=== PATIENT | male | born 1980 | race Caucasian/White ===

== ENCOUNTER 2017-11-06 16:56 | Emergency (ER) | payer OTHER ==
[2017-11-06 17:19] VITALS: BP 148/87; PULSE 67; RESP 16; TEMP 98.1; O2SAT 95
--- NOTE | 2017-11-06 17:50 | EDPHY ---
H & P Time Seen by Provider: 11/06/17 17:07 HPI/ROS: HPI Upset stomach, loose stool. 37-year-old male by private vehicle. This patient reports that on Wednesday evening he ate oysters. Wednesday morning. He reports that he had some loose greenish stools. He reports that he was not nauseous. He reports that he had hot sauce with pole chicken for lunch. He reports that after this and into the evening on Wednesday he had intermittent epigastric and mid abdominal discomfort and bloating as well as continued loose greenish brownish stools. He reports that since this time he induced vomiting Wednesday evening because he was feeling bloated after he ate a greasy hamburger. He reports that he induced vomiting by drinking a lot of water. He reports he felt better after this but still has had intermittent mid abdominal cramping and epigastric discomfort with a sensation of bloating and loss of appetite. He denies bloody or melenic stool. He has had no further vomiting. He has been tolerating oral fluids. No foreign travel. No camping. No ill contacts. ROS: Constitutional: No fever, no chills. No weakness. Eyes: No discharge. No changes in vision. ENT: No sore throat. No nasal congestion or rhinorrhea. Respiratory: No cough. No shortness of breath. Cardiac: No chest pain, no palpitations. Gastrointestinal: As above. Genitourinary: No hematuria. No dysuria or increased frequency with urination. Musculoskeletal: No back pain. No neck pain. No myalgias or arthralgias. Skin: No rashes. Neurological: No headache. No focal weakness or altered sensation. Past medical history: Hypothyroid. Right shoulder surgery. Social history: Nonsmoker. Physically active. No alcohol. Here by himself. Physical Exam: General Appearance: Alert, no distress. This patient is responding to questions appropriately and in full sentences. This patient appears well- hydrated and well-nourished. Eyes: Pupils equal and round no pallor or injection. No lid edema, erythema or injection. Gastrointestinal: Abdomen is soft and nontender on deep palpation throughout, no masses, bowel sounds normal. No focal tenderness at McBurney's point. No Brantley sign. Neurological: Motor sensory function is grossly intact. Cranial nerves are normal. Gait is normal. Skin: Warm and dry, no rashes. Extremities are symmetrical. All joints range without pain or impingement. Psychiatric: No agitation. No depression. Database: EKG: Imaging: Procedures: Emergency department course: Vital signs reviewed and are normal. He has a benign abdominal exam. He has been tolerating oral fluids. His symptoms are consistent with a food-borne illness. I discussed bland diet and oral hydration. He is to follow up with his primary care physician early this week for re-evaluation. Return to emergency department precautions were thoroughly reviewed with him. He feels comfortable going home and all of his questions were answered. He declines a prescription for Zofran or other antiemetics at this time. I did discuss using [id number] Pepto-Bismol. He was discharged in good condition. Differential Diagnosis: The differential diagnosis on this patient includes but is not limited to food borne illness, gastroenteritis. Bowel obstruction, appendicitis, volvulus, cholecystitis, pancreatitis, unlikely. This represents a partial list of diagnoses considered. These considerations are based on history, physical exam , past history, reassessment and diagnostic testing. Smoking Status: Current some day smoker Constitutional: Initial Vital Signs Temperature (C) 36.7 C 11/06/17 17:05 Heart Rate 67 11/06/17 17:05 Respiratory Rate 16 11/06/17 17:05 Blood Pressure 148/87 H 11/06/17 17:05 O2 Sat (%) 95 11/06/17 17:05 O2 Delivery Mode Room Air Allergies/Adverse Reactions: No Known Allergies Allergy (Verified 11/06/17 17:10) Home Medications: Medication Instructions Recorded Levothyroxine 11/06/17 Departure - Departure Disposition: Home, Routine, Self-Care Clinical Impression: Gastroenteritis, Food poisoning Condition: Good Instructions: Gastroenteritis (ED), Food Poisoning (ED) Additional Instructions: Read and follow provided instructions. Follow-up with your primary care physician on Wednesday or Wednesday of this week for re-evaluation. Keep well hydrated. A good fluid to drink is Gatorade mixed with water in a 1- 1 dilution over ice. Eat easily digestible foods such as dry toast and scrambled egg whites with olive oil. Advance your diet as tolerated. Use Pepto-Bismol as directed. Return to the emergency department for worsening symptoms, vomiting and inability to keep fluids down, worsening abdominal pain, fever, bloody stool or other serious concerns. Referrals: NONE *PRIMARY CARE P,. [Primary Care Provider] - As per Instructions
== END 2017-11-06 17:53 | disposition home or self-care (01) ==
LOC: CED 16:56
DX: T62.91XA Toxic effect of unspecified noxious substance eaten as food, accidental (unintentional), initial encounter (principal); K52.9 Noninfective gastroenteritis and colitis, unspecified; F17.200 Nicotine dependence, unspecified, uncomplicated

== ENCOUNTER 2018-05-31 19:15 | Emergency (ER) | payer OTHER ==
[2018-05-31 19:30] VITALS: BP 130/89
== END 2018-05-31 19:36 | disposition left against medical advice (07) ==
DX: Z53.21 Procedure and treatment not carried out due to patient leaving prior to being seen by health care provider (principal)

== ENCOUNTER 2018-05-31 20:06 | Emergency (ER) | payer OTHER ==
[2018-05-31 20:11] VITALS: BP 118/72
--- NOTE | 2018-05-31 20:22 | EDPHY ---
H & P Stated Complaint: Pt feels like someone put something in his tea. jittery Time Seen by Provider: 05/31/18 20:22 - Personal History Current Tetanus/Diphtheria Vaccine: Yes Current Tetanus Diphtheria and Acellular Pertussis (TDAP): Yes - Medical/Surgical History Hx Asthma: No Hx Chronic Respiratory Disease: No Hx Diabetes: No Hx Cardiac Disease: No Hx Renal Disease: No Hx Cirrhosis: No Hx Alcoholism: No Hx HIV/AIDS: No Hx Splenectomy or Spleen Trauma: No Other PMH: Med hx-hypothyroid. Surg-rt shoulder for tear - Social History Smoking Status: Former smoker Constitutional: Initial Vital Signs Temperature (C) 37.4 C 05/31/18 20:08 Heart Rate 78 05/31/18 20:08 Respiratory Rate 16 05/31/18 20:08 Blood Pressure 118/72 05/31/18 20:08 O2 Sat (%) 95 05/31/18 20:08 O2 Delivery Mode Room Air Allergies/Adverse Reactions: No Known Allergies Allergy (Verified 05/31/18 20:11) Home Medications: Medication Instructions Recorded Levothyroxine 11/06/17 Medical Decision Making ED Course/Re-evaluation: CHIEF COMPLAINT: Concern for substance ingestion HISTORY OF PRESENT ILLNESS: This patient is a 37 year old male who presents with concern that he may have ingested an unknown substance against his will. Today at work, a coworker offered him a cup of green tea. About 20-25 minutes after drinking this, he began to feel hyper-focused. He also had his regular full cup of bulletproof coffee this morning, but generally has a high caffeine tolerance and is not affected by extra caffeine intake. After lunch, the patient felt unusually jittery, wired, and anxious. He is concerned as this is abnormal for him, and he is worried he may have been given a substance such as cocaine or amphetamines in the tea. He is particularly concerned as he suspects the possibility of ulterior motives in his coworker for providing him with illicit substances against his knowledge. He denies any caffeine or energy supplements including B complex of B12. He has been on a keto diet and has been taking a liver support enzyme and magnesium. Currently, he feels much more calm and normal. He denies chest pain, shortness of breath, palpitations, diaphoresis, nausea, vomiting, diarrhea, or other associated symptoms. REVIEW OF SYSTEMS: A comprehensive 10 system review of systems is otherwise negative aside from elements mentioned in the history of present illness and medical decision making. PHYSICAL EXAM: HR, BP, O2 Sat, RR. Temp noted General Appearance: Alert, well hydrated, appropriate, and non-toxic appearing. Head: Atraumatic without scalp tenderness or obvious injury Eyes: Pupils equal, round, reactive to light and accommodation, EOMI, no trauma , no injection. Ears: Clear bilaterally, no perforation, normal landmarks Nose: Atraumatic, no rhinorrhea, clear. Throat: There is no erythema or exudates, no lesions, normal tonsils, mucus membranes moist. Neck: Supple, 2+ carotid upstroke, nontender, no lymphadenopathy. Respiratory: No retractions, no distress, no wheezes, and no accessory muscle use. Lungs are clear to auscultation bilaterally. Cardiovascular: Regular rate and rhythm, no murmurs, rubs, or gallops. Bilateral carotid, radial, dorsalis pedis, and posterior tibial pulses intact. Good capillary refill all extremities. Gastrointestinal: Abdomen is soft, nontender, non-distended, no masses, no rebound, no guarding, no peritoneal signs. Musculoskeletal: Normal active ROM of all extremities, atraumatic. Neurological: Alert, appropriate, and interactive. The patient has normal DTRs and non-focal cranial nerves, motor, sensory, and cerebellar exam. Skin: No rashes, good turgor, no nodules on palpation. Past medical history: Hypothyroid (levothyroxine). Past surgical history: Noncontributory. Family history: Noncontributory. Social history: Employed. Single. Lives in [place]. DIFFERENTIAL DIAGNOSIS: The differential diagnosis for the patient's altered mental status included but was not limited to hypoglycemia, infectious process, electrolyte abnormality, head injury, neurologic process, anemia, cardiac process, and intoxicants. MEDICAL DECISION MAKING: This patient is a 37 year old male who presents with concern for unknown substance ingestion. Plan for urine tox screen. 20:56 Reviewed laboratory results with the patient. Negative for amphetamines, phencyclidines, cocaine, or other substances. Positive marijuana. He is reassured that there is no evidence of these substances. As his consumption was more than six hours ago, he may have metabolized a small amount already. We discussed methods for drug testing including home kits available over the counter should he become concerned again. Plan to discharge home in good condition. Follow up and return precautions discussed. He is comfortable with this plan. - Data Points Laboratory Results: 05/31/18 20:25 Urine Opiates Screen NEGATIVE (NEGATIVE) Urine Barbiturates NEGATIVE (NEGATIVE) Ur Phencyclidine Scrn NEGATIVE (NEGATIVE) Ur Amphetamine Screen NEGATIVE (NEGATIVE) U Benzodiazepines Scrn NEGATIVE (NEGATIVE) Urine Cocaine Screen NEGATIVE (NEGATIVE) U Marijuana (THC) Screen NON-NEGATIVE H (NEGATIVE) Departure - Departure Disposition: Home, Routine, Self-Care Clinical Impression: Encounter for medical screening examination Condition: Good Instructions: Additional Information Additional Instructions: Follow up with your primary care provider for further concerns. Referrals: Gissell An MD [Medical Doctor] - As per Instructions Report Scribed for: Pablo Steele Report Scribed by: Clolette Schmitz Date of Report: 05/31/18 Time of Report: 21:00
== END 2018-05-31 21:00 | disposition home or self-care (01) ==
DX: Z03.6 Encounter for observation for suspected toxic effect from ingested substance ruled out (principal); Z87.891 Personal history of nicotine dependence
CPT/HCPCS: 80305